=== PATIENT | male | born 1990 | race Hispanic/Latino ===

== ENCOUNTER 2018-09-14 16:59 | Emergency (ER) | payer OTHER, SELFPAY ==
[2018-09-14] MEDS ORDERED: Dexamethasone 10 MG/ML VIAL ONE (17:27)
== END 2018-09-14 17:33 | disposition home or self-care (01) ==
LOC: ERS 16:59
DX: H60.91 Unspecified otitis externa, right ear (principal)
CPT/HCPCS: 99283; J1100

== ENCOUNTER 2020-08-13 10:35 | Emergency (ER) | payer SELFPAY | END 2020-08-13 11:21 | disposition home or self-care (01) | LOC: ERS 10:35 | DX: H66.91 Otitis media, unspecified, right ear (principal); H60.91 Unspecified otitis externa, right ear | CPT/HCPCS: 99282 ==